=== PATIENT | male | born 1955 | race Caucasian/White ===

== ENCOUNTER 2025-06-11 05:45 | Day surgery (SDC) | payer OTHER, SELFPAY ==
[2025-05-29 11:36] LABS: Hematocrit 43.1 % (39.0-52.0); Hemoglobin 14.0 g/dL (13.0-18.0); Mean Corp Hgb Conc. 32.5 g/dL (33.0-37.0); Mean Corpuscular Volume 87.4 fL (80.0-94.0); Platelet Count 256 10^3/uL (130-400); Red Cell Dist. Width 13.7 % (11.5-14.5)
[2025-05-29 12:09] LABS: Blood Urea Nitrogen 23 mg/dl (9-20); Calcium 9.4 mg/dl (8.4-10.2); Carbon Dioxide 26 mmol/L (22-30); Chloride 106 mmol/L (98-107); Glucose 84 mg/dl (70-99); Potassium 4.6 mmol/L (3.5-5.1); Sodium 139 mmol/L (135-145); eGFR > 60.00
[2025-05-29 14:18] VITALS: BMI 19.7
[2025-06-11] VITALS (8 sets, daily range): BP systolic 103–164; BP diastolic 62–86; BMI 19.7
[2025-06-11] MEDS: NORMOSOL-R/PLASMALYTE-A 1000 IV (06:28)
[2025-06-11] MEDS: TYLENOL 1000 MG PO (06:29)
--- NOTE | 2025-06-11 06:46 | HP.FOC2 ---
Focused History & Physical
Chief Complaint
HPI:
Chief Complaint: Bilateral inguinal hernias
HPI / Indication for Planned Procedure: Patient is a 69-year-old male who has had a longstanding history of bilateral inguinal hernias that he has chosen to follow expectantly. The hernias have significantly increased in size particularly in the
right inguinal region with some associated mild discomfort but no pain. He presents today for scheduled operative correction.
Relevant Past Medical History: Other (Systemic sclerosis, hypertension)
Relevant Social History: Negative
Relevant Family History: Negative
Relevant Past Surgical History: Positive for (Partial left hip replacement)
Review of Systems
Review of Pertinent Systems: All Systems Negative
Medication
See Medication form for detailed medications: Yes
Medication List (including Herbals & OTC):
carboxymethylcellulose sodium 0.25 % eye drops (TheraTears) 1 drp ophthalmic (eye) TID 06/04/25
cholecalciferol (vitamin D3) 50 mcg (2,000 unit) capsule (Vitamin D3) 50 mcg PO DAILY 06/04/25
fluticasone propionate 50 mcg/actuation nasal spray,suspension 1 spray intranasal DAILY 06/04/25
losartan 50 mg tablet 50 mg PO DAILY 06/04/25
Medications Reviewed: Yes
Allergies and Reactions
Patient has Allergies: No
Noted Allergies and Reactions:
Allergy/AdvReac Type Severity Reaction Status Date / Time
No Known Allergies Allergy Unverified 06/11/25 06:15
Pertinent Physical Exam
All Other Systems: Negative
Head/Neck: Normal
Lungs: Normal
Heart: Normal
Abdomen: Other (Bilateral inguinal hernias, right larger than left)
Extremities: Normal
Neurological: Normal
Diagnosis / Assessment
69-year-old male presenting for scheduled operative correction bilateral inguinal hernias
Plan / Procedure
Robotic assisted laparoscopic repair of bilateral inguinal hernias with mesh
Anesthesia/Sedation to be done by Anesthesia Provider: Yes
--- NOTE | 2025-06-11 06:47 | W.SUR.PREOP ---
Pre-Operative Surgical Note
-
I have examined this patient prior to the performance of the scheduled procedure.
The patient's condition is unchanged from the time of the current History and
Physical and the patient is able to undergo the scheduled procedure.
[2025-06-11] MEDS: TRANSDERM-SCOP 1 PATCH TRANSDERM (07:03)
[2025-06-11] MEDS: EMEND 40 MG PO (07:03)
--- NOTE | 2025-06-11 09:55 | W.IMMPOSTOP ---
Addendum entered and electronically signed by Doyle Gillette MD 06/11/25 10:07:
#[id number]
Original Note:
Surgical Immed Post Op Note
-
Primary Surgeon: Doyle Gillette MD
Assisting Surgeon: Coco Zayas PA-c
Pre-op Diagnosis: Bilateral inguinal hernias
Post-op Diagnosis: Bilateral inguinal hernias; direct
Procedure Performed: Robotic assisted laparoscopic YOLI repair bilateral inguinal hernias with mesh; 3D max large regular weight
Anesthesia Type: GETA +0.25% Marcaine
Specimen / Cultures: None
Estimated Blood Loss: 10 mL
Complications: None immediate
Operative Findings: Large bilateral direct inguinal hernias right side slightly larger than left. Plication of pseudosac with 2-0 PDS STRATAFIX spiral suture. 3D max large regular weight mesh repair secured to Jamar's ligament with 2-0 Vicryl
stitch x 2.
The assistance of Coco Zayas PA-C was required due to the complexity of the procedure. During the procedure Coco Zayas PA-C assisted with port placement, robotic instrumentation and suture material exchanges, and closure of the surgical incision
sites. I was present for the entirety of the operative procedure.
[2025-06-11] MEDS: DILAUDID 0.25 MG IV ×2 (10:36→10:50)
== END 2025-06-11 12:45 | disposition home or self-care (01) ==
LOC: SDS 05:45
PROVIDERS: ATTENDING PHYSICIAN Surgery; FAMILY PHYSICIAN Family Medicine
DX: K40.20 Bilateral inguinal hernia, without obstruction or gangrene, not specified as recurrent (principal)
CPT/HCPCS: 49650; 36415; 80048; 85027; 93005; C1781